=== PATIENT | female | born 1945 | race Caucasian/White ===

== ENCOUNTER → 2019-07-21 | Outpatient (CLI) | payer BC ==
--- NOTE | 2019-07-21 13:10 | Diagnostic Imaging Report ---
Abdomen, one view on 2 radiographs Indication: UTI Comparison: Ultrasound of the kidneys are partially today Findings: No renal calculi identified. The bowel gas pattern is nonobstructed. There are degenerative changes of the lumbar spine with moderate scoliosis. No acute osseous abnormalities. Impression: No renal calculi identified. Signed by: Adan Chisholm MD on 07/21/2019 1:07 PM
--- NOTE | 2019-07-21 13:11 | Diagnostic Imaging Report ---
Ultrasound of the Kidneys, 07/21/2019. Clinical History: UTI. Discussion: Sonographic evaluation of the kidneys is performed. Right kidney: 10.0 cm in length, normal in size, with cortical thickness of 1.5 cm. Normal cortical echogenicity. No mass. No shadowing calculus. No hydronephrosis. Left kidney: 11.7 cm in length, normal in size, with cortical thickness of 1.3 cm. Normal cortical echogenicity. No mass. No shadowing calculus. No hydronephrosis. Limited Doppler evaluation demonstrates normal color Doppler flow within bilateral renal juan. Fluid: No perinephric fluid. Bladder: Bilateral ureteral jets are visualized. IMPRESSION: Normal sonographic evaluation of the bilateral kidneys. No renal calculi identified. Signed by: Adan Chisholm MD on 07/21/2019 1:08 PM
== END ==
LOC: US 12:18
PROVIDERS: ATTEND Urology
DX: N39.0 Urinary tract infection, site not specified (principal)
CPT/HCPCS: 74018; 76770

== ENCOUNTER → 2020-03-03 | Outpatient (CLI) | payer BC ==
--- NOTE | 2020-03-03 16:53 | Diagnostic Imaging Report ---
EXAM: CT Abdomen and Pelvis WITHOUT intravenous contrast INDICATION: Hematuria COMPARISON: Renal ultrasound of 07/21/2019, KUB of 07/21/2019 TECHNIQUE: Abdomen and pelvis were scanned utilizing a multidetector helical scanner from the lung base to the pubic symphysis without administration of IV contrast. Coronal and sagittal reformations were obtained. IV CONTRAST: None ORAL CONTRAST: None COMPLICATIONS: None RADIATION DOSE: Total DLP: 655 mGy*cm Dose modulation, iterative reconstruction, and/or weight based adjustment of the mA/kV was utilized to reduce the radiation dose to as low as reasonably achievable. FINDINGS: LOWER THORAX: Normal. HEPATOBILIARY: No focal hepatic lesions. No biliary ductal dilatation. The gallbladder appears unremarkable. SPLEEN: No splenomegaly. PANCREAS: No focal masses or ductal dilatation. ADRENALS: No adrenal nodules. KIDNEYS/URETERS: No hydronephrosis, stones, or solid mass lesions. PELVIC ORGANS/BLADDER: Unremarkable. PERITONEUM / RETROPERITONEUM: No free air or fluid. LYMPH NODES: No lymphadenopathy. VESSELS: Unremarkable. GI TRACT: Severe diverticulosis without CT evidence of diverticulitis. No abnormal bowel thickening. No bowel obstruction. BONES AND SOFT TISSUES: Prominent levoconvex curvature of the lumbar spine. No acute osseous injury. IMPRESSION: No hydronephrosis, renal calculi, or solid renal mass lesion. Extensive diverticulosis without CT evidence of diverticulitis. Signed by: Khanh Rodriguez MD on 03/03/2020 4:50 PM
== END ==
LOC: CT 16:00
PROVIDERS: ATTEND Urology
DX: R31.21 Asymptomatic microscopic hematuria (principal)
CPT/HCPCS: 74176